=== PATIENT | male | born 1945 | race Caucasian/White ===

== ENCOUNTER → 2024-06-14 12:54 | Outpatient (REF) | payer OTHER, SELFPAY | LOC: RCS 12:54 | PROVIDERS: ATTENDING PHYSICIAN Internal Medicine Geriatric Medicine | DX: E78.00 Pure hypercholesterolemia, unspecified (principal); I10 Essential (primary) hypertension | CPT/HCPCS: 93017; 93350 ==

== ENCOUNTER → 2024-11-09 14:51 | Outpatient (REF) | payer OTHER, SELFPAY | LOC: MRI 3T 14:51 | PROVIDERS: ATTENDING PHYSICIAN Student in an Organized Health Care Education/Training Program; FAMILY PHYSICIAN Internal Medicine Geriatric Medicine | DX: M48.07 Spinal stenosis, lumbosacral region (principal); M54.50 Low back pain, unspecified; M51.27 Other intervertebral disc displacement, lumbosacral region; R26.2 Difficulty in walking, not elsewhere classified | CPT/HCPCS: 72158; A9575 ==